=== PATIENT | male | born 1970 | race African-American/Black ===

== ENCOUNTER 2022-09-13 16:05 | Emergency (ER) | payer MEDICAID, OTHER, SELFPAY ==
--- NOTE | ~2022-09-13 | XR_ITS ---
EXAMINATION: XR CHEST CLINICAL INFORMATION: Chest trauma COMPARISON: Chest radiograph 01/24/2020 TECHNIQUE: Frontal view of the chest was obtained. FINDINGS: Heart size normal. Lungs are hypoinflated. Left basilar atelectasis is seen, similar to 2012. No pleural effusions or rib fractures. XR/XR chest 1V IMPRESSION: No acute intrathoracic disease.
--- NOTE | ~2022-09-13 | CT_ITS ---
EXAMINATION: CT CHEST, ABDOMEN AND PELVIS WITH CONTRAST CLINICAL INFORMATION: Question chest trauma and abdominal trauma. Acute mental status change and fall COMPARISON: None TECHNIQUE: Multidetector volumetric imaging was performed from the thoracic inlet through the pubic symphysis. Sagittal and coronal reformatted images were obtained on the technologist's workstation. Axial MIP volume rendering provided. Oral contrast: No. Intravenous contrast: 85 mL of Omnipaque 350. No contrast reaction reported. Sagittal and coronal reformatted images were obtained on the technologist's workstation. This CT examination was performed using dose optimization techniques as appropriate, variously including the following: *Automated exposure control *Adjustment of mA and/or kV according to patient size (this includes techniques or standardized protocols for targeted exams where dose is matched to indication/reason for exam; i.e. extremities or head) *Use of iterative reconstruction technique DLP: 1812 mGy-cm FINDINGS: CHEST: Lungs: Respiratory motion artifact. Minimal hazy atelectasis in the lower lobes and left upper lobe. No airspace consolidation. No appreciable pulmonary nodule or mass. Central airways are clear. Mediastinum: No cardiomegaly or pericardial effusion. No coronary artery vascular calcification. Normal caliber thoracic aorta. No dissection and/or pseudoaneurysm. Arch origins patent. Main pulmonary arteries enhance normally. No mediastinal hematoma or pneumomediastinum. No mediastinal or hilar lymphadenopathy. Multinodular appearance of the thyroid gland noted. Pericardium/Pleura: No pleural effusion or pneumothorax. Chest Wall/Axilla: Unremarkable. ABDOMEN/PELVIS: Liver, Gallbladder, Biliary Tree: The liver is mildly enlarged measuring 18.6 cm in craniocaudal length. Diffuse hepatic hypoattenuation/steatosis. No liver lesion or biliary ductal dilation. The gallbladder is unremarkable with no evidence of radiopaque gallstones, gallbladder wall thickening, or pericholecystic inflammatory changes. Pancreas: Unremarkable. Spleen: Unremarkable. Adrenal Glands: Unremarkable. Kidneys and Ureters: The kidneys are normal in size, shape, and attenuation. No hydronephrosis or hydroureter or calculi seen. No perinephric stranding. Bladder: Unremarkable. Gastrointestinal Tract: Large amount of formed stool in the rectum and distal sigmoid colon. No rectal wall thickening or surrounding inflammatory stranding. No dilated bowel loops. No bowel wall thickening. Appendix not visualized. No inflammatory change at the base of the cecum. No ascites or free air. Abdominal Wall: Tiny fat-containing umbilical hernia. Lymphovascular Structures: Lymph nodes: No lymphadenopathy. Vascular: Unremarkable. Pelvic Viscera: Unremarkable. OSSEOUS STRUCTURES: No acute fracture or suspicious osseous lesion. CT/CT abdomen pelvis w IV con IMPRESSION: 1. No acute traumatic injury identified in the chest, abdomen, or pelvis. No acute fracture. 2. Mild hepatomegaly and hepatic steatosis. 3. Large amount of formed stool in the rectum and distal sigmoid colon. Correlate clinically with signs or symptoms of constipation or fecal impaction. 4. Incidental probable multinodular thyroid goiter. Suggest follow-up as previously advised on earlier CT cervical spine.
--- NOTE | ~2022-09-13 | CT_ITS ---
EXAMINATION: NONCONTRAST HEAD CT NONCONTRAST CERVICAL SPINE CT INDICATION INFORMATION: Acute mental status change. Question neck trauma. COMPARISON: None TECHNIQUE: Separate noncontrast CT examinations of the head and cervical spine were performed. Coronal and sagittal images were created for each examination at the technologist workstation. This CT examination was performed using dose optimization techniques as appropriate, variously including the following: *Automated exposure control *Adjustment of mA and/or kV according to patient size (this includes techniques or standardized protocols for targeted exams where dose is matched to indication/reason for exam; i.e. extremities or head) *Use of iterative reconstruction technique DLP: 1331 mGy-cm FINDINGS: HEAD: No intra or extra-axial fluid collection, hemorrhage, or mass. No ventriculomegaly. No midline shift or herniation. Basal cisterns are patent. Baltazar-white matter differentiation is maintained. No territorial encephalomalacia. No significant volume loss. There is no abnormal attenuation within the brain parenchyma. No calvarial fracture or soft tissue abnormality. Mucous retention cyst within the right maxillary antrum. Small amount of mucus in a few posterior ethmoid air cells laterally. Mastoid air cells are normally aerated. CERVICAL SPINE: Alignment: Mild reversal the normal cervical lordosis. No subluxation. Vertebra: No acute fracture. No prevertebral soft tissue swelling. Degenerative disc disease: Mild multilevel spondylosis of the mid and lower cervical spine with small anterior endplate osteophytes. Intervertebral disc heights are fairly well-maintained. Other findings: Prominent size and multinodular appearance of the thyroid gland left gland appearing slightly larger than right. Visualized lung apices grossly clear. No cervical lymphadenopathy. CT/CT cervical spine wo IV con IMPRESSION: 1. No intracranial hemorrhage or calvarial fracture. 2. No traumatic subluxation or acute cervical spine fracture. 3. Probable multinodular thyroid goiter. Suggest nonemergent thyroid ultrasound for further evaluation and correlation with thyroid function tests.
[2022-09-13 16:25] VITALS: BP 132/86; BP 160/90; PULSE 109; PULSE 111; RESP 18; TEMP 36.3; O2SAT 93; O2SAT 96; BMI 35.2
--- NOTE | 2022-09-13 16:59 | ECG_ITS ---
Test Reason : ams Blood Pressure : / mmHG Vent. Rate : 091 BPM Atrial Rate : 091 BPM P-R Int : 182 ms QRS Dur : 092 ms QT Int : 334 ms P-R-T Axes : 044 034 -10 degrees QTc Int : 410 ms Normal sinus rhythm Cannot rule out Inferior infarct (cited on or before 26-DEC-2011) Abnormal ECG When compared with ECG of 26-DEC-2011 10:14, No significant changes seen Referred By: Bandar Zepeda Electronically Signed By:DAWN MARTE
--- NOTE | 2022-09-13 17:00 | ED_ITS ---
HPI - General Adult General Chief complaint: General Medical Stated complaint: AMS, FOUND WANDERING PER EMS Time Seen by Provider: 09/13/22 16:59 Source: EMS Mode of arrival: EMS Limitations: altered mental status History of Present Illness HPI narrative: This is a 52-year-old male presenting to the emergency department via ambulance for altered mental status patient was found urinating on the sidewalk per report of EMS, according to nursing note EMS reported that patient appeared altered and not responding to questions, he was initially communicating by writing on paper and there was questions that he may have some sort of developmental delay. Upon my history taking patient is not answering questions at all. Unable to obtain an accurate history or review of systems. I do not have previous records on t his patient and I do not know patient's baseline. Related Data Allergies Allergy/AdvReac Type Severity Reaction Status Date / Time Unable to Assess Allergy Unverified 09/13/22 16:59 Review of Systems Review of Systems: Yes Unobtainable due to mental status PMFSH Past Medical History Attestation statement: The following information was validated with the patient. Source: nursing notes reviewed Social History Social History Advance Directives: No Advance Directives Information Provided: No Physical Exam ED Vital Signs: Vital Signs - 24 hr 09/13/22 16:25 09/13/22 20:03 Temperature 97.3 F 99.0 F Pulse Rate 111 H 91 Respiratory Rate 18 18 Blood Pressure 160/90 H 157/94 H Pulse Oximetry 93 95 Oxygen Delivery Method Room Air Room Air BMI result Body Mass Index 35.2 Patient is noted to be tachycardic and saturating 93% on room air Appearance: Patient awake, alert. No acute distress.? Head: Normocephalic, atraumatic, no step-offs or deformities Eyes: Pupils equal, round and reactive to light.? Extraocular movements intact. Patient tracking objects appropriately. ENT: Pharynx normal.? Neck: Normal inspection.? Neck supple.? CVS: Normal heart rate and rhythm.? Pulses normal.? Respiratory: No respiratory distress.? Breath sounds normal.? Abdomen: Soft and nontender.? Skin: Skin warm and dry.? Normal skin color.? Normal skin turgor.? Extremities: No lower extremity edema.? No calf ttp. 5/5 strength to bilateral upper and lower extremities Back: No midline tenderness, no C-spine tenderness, full range of motion, no CVA tenderness bilaterally Neuro: Patient awake, alert. Not speaking, however moving all extremities.? No motor deficit.? No sensory deficit. Difficult to obtain a full neurological exam is patient is not contributing. Unable to obtain accurate NIH stroke scale. Patient not following commands. Course Reevaluation(s) Reevaluation #1: Per patients mom patient takes Haldol, Latuda, Benadryl. Psychiatrist Khadar Hartman. Patients mom tells me that patient has a history of schizophrenia unsure if he has been taking his medications as prescribed. He has had multiple inpatient psychiatric admissions for this. Patient is able to talk however patient continues to be nonverbal. At this time consult for care team will be placed for him to be evaluated after medically cleared. Patient will be placed on a Section 12 I am concerned that patient is catatonic. After my initial evaluation, nursing also reported to me that patient is not speaking and not moving, concerns for catatonia, likely non med compliance. Time: 19:29 Reevaluation #2: CBC with slight leukocytosis however I do not suspect infection on this patient. Chemistry with no acute electrolyte abnormalities requiring intervention. His AST is 51 and ALT 140 to elevated in a 2-1 ratio. UA clean. Urine toxicology negative. Ethanol negative. Chest x-ray with no acute intrathoracic disease. Pending CT scans. Time: 19:49 Reevaluation #3: The care team had a more in-depth conversation with mother, mother reports that he talk only to her sometimes and very minimally, he does not talk to other people. She tells care team that this is his baseline and that sometimes he goes out and does strange things like peas on the street, she says that she has been caring for him for years, care team past mother what she would prefer for disposition, mother states that she feels comfortable taking him home because this does not deviate far from his baseline. Mom states he did not have any history of TBIs or developmental delays that are diagnosed. Care team feels comfortable with patient being discharged home they did ask him a series of questions, patient did not respond verbally however he was able to [place] answers on a piece of paper that made sense. Patient not suicidal or homicidal. Patient not meeting inpatient psychiatric criteria CT of the chest, abdomen and pelvis with no acute traumatic injury or acute fractures. There is mild hepatomegaly aunts hepatic steatosis noted. Large amount of stool in the rectum and distal sigmoid. Multi nodular thyroid goiter noted on CT. CT of the head with no intracranial hemorrhage or clavicular fracture. No traumatic subluxation or acute cervical spine fracture. Chest x- ray unremarkable. Plan is to discharge patient home to mother, care team will set up transportation for patient to get home, I did communicate all of this with patient, he nods and verbalizes understanding. Educated patient on diagnosis and treatment plan, answered all question, patient verbalizes understanding. At this time patient will be discharged home, advised to return with new or worsening symptoms. Educated on worrisome signs and symptoms and when to return. At this time I feel comfortable discharge home. Time of discharge patient answering questions appropriately via writing, hemodynamically stable, appears comfortable. Time: 21:13 Medications Administered Discontinued Medications Generic Name Dose Route Start Last Admin Trade Name Freq PRN Reason Stop Dose Admin Iohexol 100 ml 09/13/22 19:01 09/13/22 19:01 Iohexol 350 Mg/Ml 100 Ml Infus..Btl IV 09/13/22 19:02 85 ml ONCE ONE Administration Medical Decision Making Medical Decision Making [facility] Narrative: [id number] 52-year-old male presents for altered mental status found urinating on the sidewalk brought in by EMS, patient not speaking unclear if this is his baseline or not. Unknown past medical history. Physical examination patient awake, alert, appears comfortable, in no acute distress. However difficult to obtain neurological exam due to patient not participating in exam. Patient moving all extremities without difficulty, no evidence signs of trauma. Extraocular movements intact and pain-free. Pupils equal round and reactive to light. Regular rate and rhythm. Lungs clear. Abdomen soft nontender nondistended. Concerns for possible traumatic injury, polysubstance abuse, developmental delay, UTI. Will rule out intracranial hemorrhage in stroke. Will also rule out alcohol intoxication and electrolyte abnormalities Plan at this time labs, imaging, urine. Differential Diagnosis Differential Diagnoses: The differential diagnosis associated with the presentation includes Concerns for possible traumatic injury, polysubstance abuse, developmental delay, UTI. Will rule out intracranial hemorrhage in stroke. Will also rule out alcohol intoxication and electrolyte abnormalities Admission/Observation Consideration of admission/observation: Escalation of care including admission/observation considered Lab Data [facility] Lab Attestation statement: I reviewed the patient's lab results. 09/13/22 17:54 09/13/22 17:54 Labs: Lab Results 09/13/22 09/13/22 09/13/22 Range/Units 17:54 17:54 17:54 WBC 12.5 H (4.8-10.8) X10*3/uL RBC 5.92 H (4.60-5.80) X10*6/uL Hgb 17.6 (14.0-18.0) g/dl Hct 50.7 (42.0-52.0) % MCV 85.6 (80.0-98.0) fL MCH 29.7 (27.0-33.0) pg MCHC 34.7 (31.0-36.0) g/dl RDW 12.8 (11.0-16.0) % Plt Count 213 (160-400) X10*3/uL MPV 10.9 (9.4-12.4) fL Immature Gran % (Auto) 0.3 (0.0-0.4) % Neut % (Auto) 69.8 (45-73) % Lymph % (Auto) 20.8 (20-40) % Morton % (Auto) 7.7 (2-11) % Eos % (Auto) 1.0 (0-4) % Baso % (Auto) 0.4 (0-2) % Lymph # (Auto) 2.6 (1.2-4.9) X10*3/uL [place] # (Auto) 1.0 (0.1-1.2) X10*3/uL Eos # (Auto) 0.1 (0.0-0.4) X10*3/uL Baso # (Auto) 0.1 (0.0-0.2) X10*3/uL Abs Immat Gran (auto) 0.04 H (0.00-0.03) X10*3/uL Absolute Neuts (auto) 8.7 H (2.0-8.3) x10*3/uL Absolute Nucleated RBC 0.000 (0.0-0.012) X10*3/uL Nucleated RBC % (auto) 0.0 (0.0-0.2) /100WBC Sodium 142 (135-145) mmol/L Potassium 3.9 (3.3-5.1) mmol/L Chloride 107 (96-108) mmol/L Carbon Dioxide 24 (22-29) mmol/L Anion Gap 15 (12-20) BUN 8 L (9-16) mg/dL Creatinine 0.88 (0.5-1.4) mg/dL Estim Creat Clear Calc 114.0 Estimated GFR > 60 Random Glucose 127 H (60-115) mg/dL Calcium 9.2 (8.4-10.2) mg/dL Magnesium 2.0 (1.6-2.6) mg/dL Total Bilirubin 0.4 (0.0-1.0) mg/dL AST 51 H (5-37) U/L ALT 142 H (0-40) U/L Alkaline Phosphatase 93 (39-117) U/L Troponin I High Sens 6.0 (<3.5-35.0) ng/L Total Protein 7.1 (6.5-8.0) g/dL Albumin 4.3 (3.5-5.0) g/dL Urine Color Urine Appearance Urine pH (5.0-9.0) Ur Specific [place] (1.005-1.025) Urine Protein (Neg-Trace) mg/dL Urine Glucose (UA) (Negative) mg/dL Urine Ketones (Negative) mg/dL Urine Blood (Negative) Urine Nitrite (Negative) Ur Leukocyte Esterase (Negative) Urine Opiates Screen (Not Detect) Urine Fentanyl Screen (Not Detect) Ur Barbiturates Screen (Not Detect) Ur Phencyclidine Scrn (Not Detect) Ur Amphetamines Screen (Not Detect) U Benzodiazepines Scrn (Not Detect) Urine Cocaine Screen (Not Detect) U Marijuana (THC) Screen (Not Detect) Ethyl Alcohol mg/dL COVID-19 (LUPE) (Negative) COVID-19 Clin Com 09/13/22 09/13/22 09/13/22 Range/Units 17:54 18:22 18:22 WBC (4.8-10.8) X10*3/uL RBC (4.60-5.80) X10*6/uL Hgb (14.0-18.0) g/dl Hct (42.0-52.0) % MCV (80.0-98.0) fL MCH (27.0-33.0) pg MCHC (31.0-36.0) g/dl RDW (11.0-16.0) % Plt Count (160-400) X10*3/uL MPV (9.4-12.4) fL Immature Gran % (Auto) (0.0-0.4) % Neut % (Auto) (45-73) % Lymph % (Auto) (20-40) % Morton % (Auto) (2-11) % Eos % (Auto) (0-4) % Baso % (Auto) (0-2) % Lymph # (Auto) (1.2-4.9) X10*3/uL [place] # (Auto) (0.1-1.2) X10*3/uL Eos # (Auto) (0.0-0.4) X10*3/uL Baso # (Auto) (0.0-0.2) X10*3/uL Abs Immat Gran (auto) (0.00-0.03) X10*3/uL Absolute Neuts (auto) (2.0-8.3) x10*3/uL Absolute Nucleated RBC (0.0-0.012) X10*3/uL Nucleated RBC % (auto) (0.0-0.2) /100WBC Sodium (135-145) mmol/L Potassium (3.3-5.1) mmol/L Chloride (96-108) mmol/L Carbon Dioxide (22-29) mmol/L Anion Gap (12-20) BUN (9-16) mg/dL Creatinine (0.5-1.4) mg/dL Estim Creat Clear Calc Estimated GFR Random Glucose (60-115) mg/dL Calcium (8.4-10.2) mg/dL Magnesium (1.6-2.6) mg/dL Total Bilirubin (0.0-1.0) mg/dL AST (5-37) U/L ALT (0-40) U/L Alkaline Phosphatase (39-117) U/L Troponin I High Sens (<3.5-35.0) ng/L Total Protein (6.5-8.0) g/dL Albumin (3.5-5.0) g/dL Urine Color Yellow Urine Appearance Clear Urine pH 8.5 (5.0-9.0) Ur Specific [place] 1.020 (1.005-1.025) Urine Protein Trace (Neg-Trace) mg/dL Urine Glucose (UA) Negative (Negative) mg/dL Urine Ketones Negative (Negative) mg/dL Urine Blood Negative (Negative) Urine Nitrite Negative (Negative) Ur Leukocyte Esterase Negative (Negative) Urine Opiates Screen (Not Detect) Urine Fentanyl Screen (Not Detect) Ur Barbiturates Screen (Not Detect) Ur Phencyclidine Scrn (Not Detect) Ur Amphetamines Screen (Not Detect) U Benzodiazepines Scrn (Not Detect) Urine Cocaine Screen (Not Detect) U Marijuana (THC) Screen (Not Detect) Ethyl Alcohol < 10 mg/dL COVID-19 (LUPE) Negative (Negative) COVID-19 Clin Com See Note 09/13/22 Range/Units 18:22 WBC (4.8-10.8) X10*3/uL RBC (4.60-5.80) X10*6/uL Hgb (14.0-18.0) g/dl Hct (42.0-52.0) % MCV (80.0-98.0) fL MCH (27.0-33.0) pg MCHC (31.0-36.0) g/dl RDW (11.0-16.0) % Plt Count (160-400) X10*3/uL MPV (9.4-12.4) fL Immature Gran % (Auto) (0.0-0.4) % Neut % (Auto) (45-73) % Lymph % (Auto) (20-40) % [place] % (Auto) (2-11) % Eos % (Auto) (0-4) % Baso % (Auto) (0-2) % Lymph # (Auto) (1.2-4.9) X10*3/uL [place] # (Auto) (0.1-1.2) X10*3/uL Eos # (Auto) (0.0-0.4) X10*3/uL Baso # (Auto) (0.0-0.2) X10*3/uL Abs Immat Gran (auto) (0.00-0.03) X10*3/uL Absolute Neuts (auto) (2.0-8.3) x10*3/uL Absolute Nucleated RBC (0.0-0.012) X10*3/uL Nucleated RBC % (auto) (0.0-0.2) /100WBC Sodium (135-145) mmol/L Potassium (3.3-5.1) mmol/L Chloride (96-108) mmol/L Carbon Dioxide (22-29) mmol/L Anion Gap (12-20) BUN (9-16) mg/dL Creatinine (0.5-1.4) mg/dL Estim Creat Clear Calc Estimated GFR Random Glucose (60-115) mg/dL Calcium (8.4-10.2) mg/dL Magnesium (1.6-2.6) mg/dL Total Bilirubin (0.0-1.0) mg/dL AST (5-37) U/L ALT (0-40) U/L Alkaline Phosphatase (39-117) U/L Troponin I High Sens (<3.5-35.0) ng/L Total Protein (6.5-8.0) g/dL Albumin (3.5-5.0) g/dL Urine Color Urine Appearance Urine pH (5.0-9.0) Ur Specific [place] (1.005-1.025) Urine Protein (Neg-Trace) mg/dL Urine Glucose (UA) (Negative) mg/dL Urine Ketones (Negative) mg/dL Urine Blood (Negative) Urine Nitrite (Negative) Ur Leukocyte Esterase (Negative) Urine Opiates Screen Not Detected (Not Detect) Urine Fentanyl Screen Not Detected (Not Detect) Ur Barbiturates Screen Not Detected (Not Detect) Ur Phencyclidine Scrn Not Detected (Not Detect) Ur Amphetamines Screen Not Detected (Not Detect) U Benzodiazepines Scrn Not Detected (Not Detect) Urine Cocaine Screen Not Detected (Not Detect) U Marijuana (THC) Screen Not Detected (Not Detect) Ethyl Alcohol mg/dL COVID-19 (LUPE) (Negative) COVID-19 Clin Com Independent Interpretation I performed an independent interpretation of an: Plain X-Ray and CT Scan Independent Historian Clinical information obtained from an independent historian. History obtained from or confirmed by: EMS Core Measures AMI core measures followed: Yes Measure exclusions: not indicated Critical Care Time Critical Care Time Critical Care Time: No Discharge Plan Discharge Clinical Impression: Schizophrenia, Bizarre behavior Patient Disposition: Home, Self-Care Additional Instructions: Take your medications as prescribed. If you were prescribed antibiotics today, it is important that you take your medication to their entirety, do not skip any doses, do not finish them early. Follow-up with your primary care provider this week. Return to the emergency department with new or worsening symptoms. Such as fevers, chills, chest pain, shortness of breath, nausea, vomiting, dizziness, headache, vision changes, lethargy, suicidal ideation or homicidal ideations In case of emergency call 911 CT/CT cervical spine and head wo IV con IMPRESSION: 1. No intracranial hemorrhage or calvarial fracture. 2. No traumatic subluxation or acute cervical spine fracture. 3. Probable multinodular thyroid goiter. Suggest nonemergent thyroid ultrasound for further evaluation and correlation with thyroid function tests. CT of chest, abdomen and pelvis 1.? No acute traumatic injury identified in the chest, abdomen, or pelvis. No acute fracture. 2.? Mild hepatomegaly and hepatic steatosis. 3.? Large amount of formed stool in the rectum and distal sigmoid colon. Correlate clinically with signs or symptoms of constipation or fecal impaction. 4.? Incidental probable multinodular thyroid goiter. Suggest follow-up as previously advised on earlier CT cervical spine. ? Referrals: Physician,Laron J [Primary Care Provider] - 2 days
[2022-09-13 18:00] LABS: MANUAL DIFF FLAG NO
[2022-09-13 18:02] LABS: Basophils Absolute Auto 0.1 X10*3/uL (0.0-0.2); Basophils Percent Auto 0.4 % (0-2); Eosinophils Absolute Auto 0.1 X10*3/uL (0.0-0.4); Hematocrit 50.7 % (42.0-52.0); Hemoglobin 17.6 g/dl (14.0-18.0); Imm Gran Abs Auto 0.04 X10*3/uL (0.00-0.03); Imm Gran Pct Auto 0.3 % (0.0-0.4); Lymphocytes Absolute Auto 2.6 X10*3/uL (1.2-4.9); Lymphocytes Percent Auto 20.8 % (20-40); Mean Corpuscular HGB Conc 34.7 g/dl (31.0-36.0); Mean Corpuscular Hemoglobin 29.7 pg (27.0-33.0); Mean Corpuscular Volume 85.6 fL (80.0-98.0); Mean Platelet Volume 10.9 fL (9.4-12.4); Monocytes Percent Auto 7.7 % (2-11); Neutrophils Absolute Auto 8.7 x10*3/uL (2.0-8.3); Neutrophils Percent Auto 69.8 % (45-73); Platelet Count 213 X10*3/uL (160-400); Red Blood Count 5.92 X10*6/uL (4.60-5.80); Red Cell Distribution Width 12.8 % (11.0-16.0); White Blood Count 12.5 X10*3/uL (4.8-10.8)
[2022-09-13 18:25] LABS: Alanine Aminotransferase 142 U/L (0-40); Albumin Level 4.3 g/dL (3.5-5.0); Alkaline Phosphatase 93 U/L (39-117); Anion Gap 15 (12-20); Aspartate Amino Transferase 51 U/L (5-37); Bilirubin Total 0.4 mg/dL (0.0-1.0); Blood Urea Nitrogen 8 mg/dL (9-16); Calcium 9.2 mg/dL (8.4-10.2); Carbon Dioxide 24 mmol/L (22-29); Chloride 107 mmol/L (96-108); Estimated Glomerular Filt Rate > 60; Ethanol < 10 mg/dL; Glucose Random 127 mg/dL (60-115); Potassium 3.9 mmol/L (3.3-5.1); Sodium 142 mmol/L (135-145); Total Protein 7.1 g/dL (6.5-8.0)
[2022-09-13 18:29] LABS: Appearance Urine Clear; Color Urine Yellow; Glucose Urine UA Negative (Negative); Leukocyte Esterase Urine Negative (Negative); Nitrite Urine Negative (Negative); PH 8.5 (5.0-9.0); Urine Blood Negative (Negative); Urine Ketones Negative (Negative); Urine Protein Trace mg/dL (Neg-Trace)
[2022-09-13 18:38] LABS: Amphetamine Screen Urine Not Detected (Not Detect); Barbiturates, Urine Not Detected (Not Detect); Benzodiazepines Screen Urine Not Detected (Not Detect); Cannabinoid Screen Urine Not Detected (Not Detect); Cocaine Screen Urine Not Detected (Not Detect); Fentanyl, urine Not Detected (Not Detect); Opiate Screen Urine Not Detected (Not Detect); Phencyclidine Screen Urine Not Detected (Not Detect)
[2022-09-13 18:49] LABS: COVID-19 Test Negative (Negative); IDNOW Serial# 55D5AD1C
[2022-09-13] MEDS: iohexoL 350 MG/ML 100 ML INFUS..BTL IV (19:01)
[2022-09-13 20:03] VITALS: BP 157/94; PULSE 91; RESP 18; TEMP 37.2; O2SAT 95
--- NOTE | 2022-09-13 21:34 | PC.NURSE ---
Pt remains awake and alert, with baseline presentation from RN's assumption of care. Pt has been noted to answer/say short, one word answers that were difficult to understand initially however the pt said thank you and urine to this RN. Pt able to follow commands but does not respond verbally to all questions/complaints. Pt able to answer yes/no questions by pointing at appropriate answers and confirms he feels safe at home. The pt's mother is aware of pending dc. Staff is awaiting scheduling of a lyft at this time by care team. RN to continue to monitor.
--- NOTE | 2022-09-13 22:19 | PC.NURSE ---
2nd attempt to contact patient's mother to review discharge instructions unsuccessful. Call continues to ring without answer and there is still no option to a leave a VM. RN stays on the line with phone ringing for a period of time until the there's a busy signal heard and then the line disconnects. RN will try again prior to shift end at 2300.
--- NOTE | 2022-09-13 23:18 | PC.NURSE ---
RN's shift is complete. RN making 3rd unsuccessful attempt to contact pt's mother at number listed on file ([phone]). RN remains unable to get an answer and/or leave a VM. foreign agent aware.
== END 2022-09-13 22:05 | disposition home or self-care (01) ==
PROVIDERS: Physician Assistant; Emergency Provider Emergency Medicine
DX: F25.9 Schizoaffective disorder, unspecified (principal); R41.82 Altered mental status, unspecified; R07.89 Other chest pain; R51.9 Headache, unspecified; M54.6 Pain in thoracic spine; Z20.822 Contact with and (suspected) exposure to COVID-19; Z20.828 Contact with and (suspected) exposure to other viral communicable diseases; Z79.899 Other long term (current) drug therapy
CPT/HCPCS: 70450; 71045; 71260; 72125; 74177; 80053; 80307; 81003; 82077; 83735; 84484; 85025; 87635; 93005; 99284; Q9967; S9485

== ENCOUNTER 2023-09-28 09:32 | Outpatient (REF) | payer MEDICAID, SELFPAY ==
[2023-09-28 14:56] LABS: Estimated Average Glucose 103 mg/dL; Hemoglobin A1c % 5.2 % (<6.0)
[2023-09-28 14:59] LABS: Alanine Aminotransferase 58 U/L (0-40); Albumin Level 4.3 g/dL (3.5-5.0); Alkaline Phosphatase 71 U/L (39-117); Anion Gap 13 (12-20); Aspartate Amino Transferase 24 U/L (5-37); Bilirubin Direct 0.2 mg/dL (0.0-0.5); Bilirubin Total 0.7 mg/dL (0.0-1.0); Blood Urea Nitrogen 16 mg/dL (9-16); Calcium 9.5 mg/dL (8.4-10.2); Carbon Dioxide 29 mmol/L (22-29); Chloride 105 mmol/L (96-108); Cholesterol 177 mg/dL (<200); Estimated Glomerular Filt Rate > 60; Glucose Random 95 mg/dL (60-115); HDL Cholesterol 41 mg/dL (>40); LDL Cholesterol Calculated 119 mg/dL (<100); Potassium 3.6 mmol/L (3.3-5.1); Sodium 143 mmol/L (135-145); Total Protein 7.2 g/dL (6.5-8.0); Triglycerides 87 mg/dL (<150)
[2023-09-28 15:16] LABS: Thyroid Stimulating Hormone 0.27 uIU/mL (0.32-4.0)
[2023-09-29 08:31] LABS: ~HepC Num1 0.06 S/CO (0.00-0.79); ~Hepatitis C Antibody Nonreactive (Nonreactive)
[2023-10-01 17:48] LABS: HIV RNA PCR Qn Copies Not Detected Copies/mL; HIV RNA PCR Qn Log Copies Not Detected Log cps/mL
== END 2023-09-28 09:33 | disposition home or self-care (01) ==
LOC: HO.CHCLDS 09:32
PROVIDERS: Visit Provider Student in an Organized Health Care Education/Training Program
DX: Z00.00 Encounter for general adult medical examination without abnormal findings (principal); Z11.4 Encounter for screening for human immunodeficiency virus [HIV]; E11.9 Type 2 diabetes mellitus without complications; I10 Essential (primary) hypertension; E03.9 Hypothyroidism, unspecified; E78.00 Pure hypercholesterolemia, unspecified
CPT/HCPCS: 36415; 80048; 80061; 80076; 83036; 84443; 86803; 87536; 87900

== ENCOUNTER 2024-06-04 09:38 | Outpatient (REF) | payer MEDICAID, SELFPAY ==
[2024-06-04 15:18] LABS: Alanine Aminotransferase 72 U/L (0-40); Albumin Level 4.3 g/dL (3.5-5.0); Alkaline Phosphatase 76 U/L (39-117); Anion Gap 14 (12-20); Aspartate Amino Transferase 28 U/L (5-37); Bilirubin Direct 0.2 mg/dL (0.0-0.5); Bilirubin Total 0.5 mg/dL (0.0-1.0); Blood Urea Nitrogen 8 mg/dL (9-16); Calcium 9.8 mg/dL (8.4-10.2); Carbon Dioxide 25 mmol/L (22-29); Chloride 107 mmol/L (96-108); Cholesterol 162 mg/dL (<200); Estimated Glomerular Filt Rate > 60; Glucose Random 100 mg/dL (60-115); HDL Cholesterol 41 mg/dL (>40); LDL Cholesterol Calculated 108 mg/dL (<100); Potassium 3.9 mmol/L (3.3-5.1); Sodium 142 mmol/L (135-145); Total Protein 7.1 g/dL (6.5-8.0); Triglycerides 69 mg/dL (<150)
[2024-06-04 15:21] LABS: TSH reflex Free T4 0.37 uIU/mL (0.32-4.0)
== END 2024-06-04 09:39 | disposition home or self-care (01) ==
LOC: HO.CHCLDS 09:38
PROVIDERS: Visit Provider Student in an Organized Health Care Education/Training Program
DX: E11.9 Type 2 diabetes mellitus without complications (principal); E78.00 Pure hypercholesterolemia, unspecified; E04.9 Nontoxic goiter, unspecified
CPT/HCPCS: 36415; 80048; 80061; 80076; 84443

== ENCOUNTER 2024-12-04 09:41 | Outpatient (REF) | payer MEDICAID, SELFPAY ==
--- OUTSIDE RECORDS SUMMARY | 2024-12-04 10:50 | XMS_ITS | Encounter Summary ---
Author Organization [employer] Address [address] [facility] 7t [place] [address] Care Team Providers Care Transitional Studies Instructor Name Role Phone Kait Godinez MD Primary Care Provider [phone] Encounter Details Date Type Department Care Team (Latest Contact Info) Description 12/04/2024 Travel Social History Tobacco Use Types Packs/Day Years Used Date Smoking Tobacco: Never Smokeless Tobacco: Never Alcohol Use Standard Drinks/Week Comments Never 0 (1 standard drink = 0.6 oz pur e alcohol) Housing Stability Answer Date Recorded What is your housing situation today? I have ever shaffer 06/26/[address] you li ve. Do you have problems with any of the following? None of the above 06/26/2023 Food Insecurity Answer Date Recorded Within the past 12 months, y ou worried that your food would run out before you got money to buy more: Sometimes True 2023 Within the past 12 months,th e food you bought just didn't last and you didn't have enough money to get more: Sometimes True 09/28/2023 Transportation Answer Date Recorded In the past 12 months, has l ack of transportation kept you from medical appts, meetings, work or from getting things needed for daily living? Yes, it has kept me from medical appointments or getting medications. 09/28/2023 Utilities Answer Date Recorded In the past 12 months, has t he electric, gas, oil or water company threatened to shut off services in your home? No 06/26/2023 Sex and Gender Information Value Date Recorded Sex Assigned at Male 06/20/2022 10:18 AM EDT Legal Sex Male 10:18 AM EDT Gender Identity Male 09/19/2022 9:48 AM EST Sexual Orientation Choose not to disclose 2022 9:48 AM EST documented as of this encounter Plan of Treatment Not on file documented as of this encounter Visit Diagnoses Not on filedocumented in this encounter Care Teams Transitional Studies Instructor Relationship Specialty Start Date End Date Kati Godinez MD [address] [place] [phone] PCP - General Family Medicine 08/02/12 documented as of this encounter
--- OUTSIDE RECORDS SUMMARY | 2024-12-04 10:50 | XMS_ITS | Encounter Summary ---
Author Organization [employer] Address [address] [facility] 7t [place] [address] Care Team Providers Care Visitor Services Technician Name Role Phone Kati Godinez MD Primary Care Provider [phone] Reason for Referral * Consultation (Routine) - Pending Review Specialty Diagnoses / Procedures Referred By Teri steele Referred To Contact Gastroenterology Diagnoses Encounter for screening for malignant neoplasm of colon Kati Godinez MD [address] [place] [address] Phone: tel: fax: Referral ID Status Reason Start Date Expiration Date Visits Requested Visits Authorized [id number] Pending Review Specialty Services Required 12/04/2024 12/04/2025 1 1 Reason for Visit * Reason Comments Follow-up dm Encounter Details Date Type Department Care Team ([facility] Contact Info) Description 12/04/2024 10:00 AM EDT Office Visit [facility]S [address] [place] [address] Kati Godinez MD [address] [place] [address] Type 2 diabetes mellitus without complication, without long-term current use of insulin (CMS/HCC) (Primary Dx); Hypercholesteremia; Hypertension, unspecified type; Hypothyroidism, unspecified type; Encounter for screening for malignant neoplasm of colon Social History Tobacco Use Types Packs/Day Years [...] the past 12 months, has t he [employer], gas, oil or water company threatened to shut off services in your home? No 06/26/2023 Sex and Gender Information Value Date Recorded Sex Assigned at Male 06/20/2022 10:18 AM EDT Legal Sex Male 10:18 AM EDT Gender Identity Male 09/19/2022 9:48 AM EST Sexual Orientation Choose not to disclose 2022 9:48 AM EST documented as of this encounter Last Filed Vital Signs Vital Sign Reading Time Taken Comments Blood Pressure 150/94 12/04/2024 9:14 AM EDT Pulse 70 12/04/2024 9:14 AM EDT Temperature 36.6 ??C (97.8 ??F) 12/04/2024 9:14 AM ED T Respiratory Rate 18 12/04/2024 9:14 AM EDT Oxygen Saturation 98% 12/04/2024 9:14 AM EDT Inhaled Oxygen Concentration - - Weight 101 kg (223 lb) 12/04/2024 9:14 AM EDT Height 173.4 cm (5' 8.25 ) 12/04/2024 9:14 AM ED T Body Mass Index 33.66 12/04/2024 9:14 AM EDT documented in this encounter Progress Notes * Kati Godinez MD - 12/04/2024 10:00 AM EDT Subjective Patient ID: Maurilio Corral is a 54 y.o. male who presents for Follow-up (dm). Diabetes He presents for his follow-up diabetic visit. He has type 2 diabetes mellitus. His disease course has been stable. There are no hypoglycemic associated symptoms. There are no diabetic associated symptoms. There are no hypoglycemic complications. Symptoms are stable. There are no diabetic complications. Risk factors for coronary artery disease include family history, male sex, sedentary lifestyle and dyslipidemia. Review of Systems Constitutional: Negative. Respiratory: Negative. Cardiovascular: Negative. Gastrointestinal: Negative. Genitourinary: Negative. Objective Physical Exam Constitutional: Appearance: Normal appearance. He is obese. Cardiovascular: Rate and Rhythm: Normal rate and regular rhythm. Pulmonary: Effort: Pulmonary effort is normal. Breath sounds: Normal breath sounds. Neurological: General: No focal deficit present. Mental Status: He is alert. Assessment/Plan Diagnoses and all orders for this visit: Type 2 diabetes mellitus without complication, without long-term current use of insulin ([facility]) Comments: All suppplies sent to pharamcy again Advised to check sugars Advised Low sugar and Low carb diet. Counseled regarding self-monitoring of blood glucose. Counseled re: potential co-morbidities including cardiovascular disease. Counseled re: potential co-morbidities include neuropathy and retinopathy. Counseled re: potential co-morbidities include nephropathy. Orders: - POCT A1C - POCT glucose manually resulted - Basic Metabolic Panel; Future - Lipid Panel, Standard; Future - Hepatic Function Panel; Future - Albumin, Random Urine W/Creatinine; Future Hypercholesteremia - Basic Metabolic Panel; Future - Lipid Panel, Standard; Future - Hepatic Function Panel; Future Hypertension, unspecified type Comments: Lisinopril 5mg daily Maintain a low-sodium diet (less than 2 grams per day). Maintain a regular cardiovascular exercise program. Advised to maintain a low-fat, low-cholesterol diet. Counseled regarding importance of weight loss. Counseled re: potential co-morbidities including cardiovascular disease. Orders: - Basic Metabolic Panel; Future - Lipid Panel, Standard; Future - Hepatic Function Panel; Future Hypothyroidism, unspecified type - TSH with Reflex to Free T4; Future Encounter for screening for malignant neoplasm of colon - Referral to Gastroenterology; Future Other orders - Blood Glucose Monitoring Suppl (SureFire 2) w/Device kit; Use to test blood sugar 2 times daily - levothyroxine (Synthroid) 25 MCG tablet; Take 1 tablet (25 mcg) by mouth before breakfast. - lisinopril 5 MG tablet; Take 1 tablet (5 mg) by mouth Once per day. documented in this encounter Plan of Treatment Scheduled Orders Name Type Priority Associated Diagnoses Orde r Schedule Basic Metabolic Panel Lab Routine Type 2 diabetes mellitus without complication, without long-term current use of insulin (CMS/HCC) Hypercholesteremia Hypertension, unspecified type Expected: 12/04/2024 (Approximate), Expires: 12/04/2025 Lipid Panel, Standard Lab Routine Type 2 diabetes mellitus without complication, without long-term current use of insulin (CMS/HCC) Hypercholesteremia Hypertension, unspecified type Expected: 12/04/2024 (Approximate), Expires: 12/04/2025 Hepatic Function Panel Lab Routine Type 2 diabetes mellitus without complication, without long-term current use of insulin (CMS/HCC) Hypercholesteremia Hypertension, unspecified type Expected: 12/04/2024 (Approximate), Expires: 12/04/2025 TSH with Reflex to Free T4 Lab Routine Hypothyroidism, unspecified type Expected: 12/04/2024 (Approximate), Expires: 12/04/2025 Albumin, Random Urine W/Creatinine Lab Routine Type 2 diabetes mellitus without complication, without long-term current use of insulin (CMS/HCC) Expected: 12/04/2024 (Approximate), Expires: 12/04/2025 Scheduled Referrals Name Type Priority Associated Diagnoses Order Schedule Referral to Gastroenterology Outpatient Referral Routine Encounter for screening for malignant neoplasm of colon Expected: 12/04/2024 (Approximate), Expires: 12/04/2025 documented as of this encounter Procedures Procedure Name Priority Date/Time Associated Diagnosis Comments POCT GLYCATED HEMOGLOBIN, TOTAL Routine 12/04/2024 9:15 AM EDT Type 2 diabetes mellitus without complication, without long-term current use of insulin (CMS/HCC) POCT GLUCOSE Routine 12/04/2024 9:15 AM EDT Type 2 diabetes mellitus without complication, without long-term current use of insulin (CMS/HCC) documented in this encounter Results * POCT glucose manually resulted (12/04/2024 9:15 AM EDT) Glucose Blood, POC 105 60 - 200 mg/dL QC Media Lot # Comment:[id number] Lot# Expiration Date Comment:02/20/2025 Blood Capillary blood specimen / Unknown 12/04/2024 9:15 AM EDT Kati Godinez MD POINT OF CARE TEST ENTER/EDIT OR DERABLES Final Result * POCT A1C (12/04/2024 9:15 AM EDT) Hemoglobin A1C 5.3 4.0 - 6.0 % QC Media Lot # Comment:[id number] Lot# Expiration Date Comment:07/09/2026 Blood 12/04/2024 9:15 AM EDT Kati Godinez MD POINT OF CARE TEST ENTER/EDIT OR DERABLES Final Result documented in this encounter Visit Diagnoses Diagnosis Type 2 diabetes mellitus without complication, without long-term current use of insulin ([facility])- Primary Hypercholesteremia Pure hypercholesterolemia Hypertension, unspecified type Hypothyroidism, unspecified type Encounter for screening for malignant neoplasm of colon documented in this encounter Care Teams Visitor Services Technician Relationship Specialty Start Date End Date Kati Godinez MD [address] [place] [phone] PCP - General Family Medicine 08/02/12 documented as of this encounter
--- OUTSIDE RECORDS SUMMARY | 2024-12-04 10:50 | XMS_ITS | Encounter Summary ---
Author Organization [employer] Address [address] [facility] 7t [place] [address] Care Team Providers Care Forklift Truck Mechanic Name Role Phone Kati Godinez MD Primary Care Provider [phone] Reason for Visit * Reason Onset Date Comments PT1 12/04/2024 Encounter Details Date Type Department Care Team ([facility] Contact Info) Description 12/04/2024 Telephone [facility]S [address] [place] [address] Kati Godinez MD [address] [place] [address] PT1 Social History Tobacco Use Types Packs/Day Years [...] AM EST documented as of this encounter Miscellaneous Notes * Telephone Encounter - Hayleesherman Allison - 12/04/2024 8:59 AM EDT Patient is requesting a renewal for Pt1 form to: Name of facility: [facility] Specialty: ALL FUTURE APPT's Location: [address] [facility] [address] Date: N/A Time: N/A fax: N/A Phone: N/A wheelchair: N/A Prosecuting Attorney: YES Name of facility: [facility] Specialty: ALL FUTURE APPT's Location: [address] [facility] [address] Date: N/A Time: N/A fax: N/A Phone: N/A wheelchair: N/A Prosecuting Attorney: YES documented in this encounter Plan of Treatment Not on file documented as of this encounter Visit Diagnoses Not on filedocumented in this encounter Care Teams Forklift Truck Mechanic Relationship Specialty Start Date End Date Kati Godinez MD [address] [place] [address] PCP - General Family Medicine 08/02/12 documented as of this encounter
--- OUTSIDE RECORDS SUMMARY | 2024-12-04 10:50 | XMS_ITS | Clinical Summary ---
Author Organization [employer] Address [address] [facility] [address] 7[address] [place] [address] Care Team Providers Care Food Manager Name Role Phone Kati Godinez MD Primary Care Provider [phone] Allergies No known active allergies Medications cyanocobalamin (Vitamin B-12) 1000 MCG tablet Take 1,000 mcg by mouth in the morning. Active Ascorbic Acid (vitamin C) 1000 MG tablet Take 1,000 mg by mouth in the morning. Active diphenhydrAMINE (BENADryl) 25 MG tablet Take by mouth. Active lurasidone (Latuda) 80 MG tablet Take 80 mg by mouth with evening meal. Active simvastatin (Zocor) 10 MG tabletIndicatio ns:Hypertension , unspecified type Take 1 tablet (10 mg) by mouth at bedtime. 30 tablet 09/28/19 24 Active OneTouch Delica Lancets 33G misc Use to test blood sugar 2 times daily 100 each 09/28/19 24 Active Alcohol Swabs 70 % pads Use to test blood sugar 2 times daily 100 each 09/28/19 24 Active empagliflozin (Jardiance) 10 MG Take 1 tablet (10 mg) by mouth Once per day. 30 tablet 11 06/04/20 24 025 Active Blood Glucose Monitoring Suppl (ONE TOUCH ULTRA 2) w/Device kit Use to test blood sugar 2 times daily 1 kit 12/05/19 25 Active levothyroxine (Synthroid) 25 MCG tablet Take 1 tablet (25 mcg) by mouth before breakfast. 30 tablet 12/05/19 25 026 Active lisinopril 5 MG tablet Take 1 tablet (5 mg) by mouth Once per day. 30 tablet 12/05/19 25 026 Active Blood Glucose Monitoring Suppl (ONE TOUCH ULTRA 2) w/Device kit Use to test blood sugar 2 times daily 1 kit 09/28/19 24 025 Discontinued(Re order (will not trigger notification to Pharmacy)) levothyroxine (Synthroid) 25 MCG tablet Take 1 tablet (25 mcg) by mouth before breakfast. 30 tablet 11 10/05/19 24 025 Discontinued(Re order (will not trigger notification to Pharmacy)) Active Problems Problem Noted Date Diagnosed Date Goiter, nodular 09/19/2022 Hypertension 09/19/2022 Schizo-affective schizophrenia 09/19/2022 Hypercholesteremia 09/19/2022 Encounters Date Type Department Care Team Description 12/04/2024 10:00 AM EDT Office Visit [facility] MED & PEDS [address] [place] [address] Kati Godinez MD Type 2 diabetes mellitus without complication, without long-term current use of insulin (CMS/HCC) (Primary Dx); Hypercholesteremia ; Hypertension, unspecified type; Hypothyroidism, unspecified type; Encounter for screening for malignant neoplasm of colon 12/04/2024 Telephone [facility] MED & PEDS [address] [place] [address] Kati Godinez MD PT1 12/04/2024 Travel 12/03/2024 Telephone [facility] MED & PEDS [address] [place] [address] Kati Godinez MD Chart Prep 11/27/2024 Patient Outreach [facility] [address] [place], [place] [phone] Kati Godinez MD Pre-visit Planning (Pre visit planning LVM ) 11/05/2024 9:20 AM EDT Office Visit [facility] [address] [place] [address] Mckinley, Licha, OD Diabetes type 2, no ocular involvement (CMS/HCC) (Primary Dx) 11/05/2024 Travel 11/01/2024 Population Health Risk Score [facility] ([facility] Department [address] [address] Provider, Population Health Generic from Last 3 Months Immunizations Name Administration Dates Next Due Hep B, adult 12/19/2005 Influenza injectable quadriv alent IIV4 with preservative 07/03/2018 Influenza injectable quadriv alent preservative free 09/19/2022,05/24/2017,08/10/2016,2014 Influenza, IIV3, injectable 05/08/2014, 8 Influenza, Split (incl. jose fied surface antigen) 05/07/2012 TD (adult), 2 Lf tetanus tox oid, preservative free, adsorbed 03/09/2006 Tdap 05/24/2017 Social History Tobacco Use Types Packs/Day Years Used Date Smoking Tobacco: Never Smokeless Tobacco: Never Tobacco Cessation:Counseling Given: Not Answered Alcohol Use Standard Drinks/Week Comments Never 0 (1 standard drink = 0.6 oz pur e alcohol) Housing Stability Answer Date Recorded What is your housing situation today? I have everjean shaffer 06/26/[address] you [...] not to disclose 2022 9:48 AM EST Last Filed Vital Signs Vital Sign Reading [...] Mass Index 33.66 12/04/2024 9:14 AM EDT Plan of Treatment Health Maintenance Due Date Last Done Comments CT Colonography 1969 Colonoscopy 1969 Colorectal Cancer Screening 1969 Depression Screening 1969 FIT DNA/Cologuard 1969 FIT 1969 FOBT 1969 HIV Screening 1969 Sigmoidoscopy 1969 Diabetes: Foot Exam 1979 Eye Exam 1979 Alcohol/Substance Use Screening 1981 Diabetes: Urine Protein Screening 1988 Pneumococcal Vaccine: 50+ Years (1 of 2 - PCV) 1988 Hepatitis B Vaccines (2 of 3 - 19+ 3-dose series) 01/16/2006 12/19/2005 Zoster Vaccines (1 of 2) 2019 SDOH Screening 09/28/2024 09/28/2023 Influenza Vaccine (#1) 2025 , 07/03/2018, 05/24/2017, Additional history exists Postponed from 04/21/2024 (Patient Refused) COVID-19 Vaccine ( - season) 2025 Postponed from 04/21/2024 (Patient Refused) Lipid Panel 06/04/2025 06/04/2024, 02/0 03/2024, 09/19/2022 Diabetes: Hemoglobin A1C 06/05/2025 025, 06/04/2024, 09/28/2023 Tobacco Screening 11/18/2025 11/18/2024 DTaP/Tdap/Td Vaccines (2 - Td or Tdap) 05/24/2027 05/24/2017, 03/09/2006 RSV Patients and Patients Aged 60 years or older (1 - 1-dose 75+ series) 2044 Hepatitis C Screening Completed 09/28/2023 HIB Vaccines Aged Out No longer eligi ble based on patient's age to complete this topic HPV Vaccines Aged Out No longer eligi ble based on patient's age to complete this topic Hepatitis A Vaccines Aged Out No long er eligible based on patient's age to complete this topic IPV Vaccines Aged Out No longer eligi ble based on patient's age to complete this topic Meningococcal Vaccine Aged Out No hermilo octaviano eligible based on patient's age to complete this topic RSV under 20 months Aged Out No longe r eligible based on patient's age to complete this topic Rotavirus Vaccines Aged Out No longer eligible based on patient's age to complete this topic Procedures Procedure Name Priority Date/Time Associated Diagnosis Comments POCT GLUCOSE Routine 12/04/2024 9:15 AM EDT Type 2 diabetes mellitus without complication, without long-term current use of insulin (CMS/HCC) POCT GLYCATED HEMOGLOBIN, TOTAL Routine 12/04/2024 9:15 AM EDT Type 2 diabetes mellitus without complication, without long-term current use of insulin (CMS/HCC) FUNDUS PHOTOS - OU - BOTH EYES Routine 11/05/2024 9:20 AM EDT Diabetes type 2, no ocular involvement (CMS/HCC) LIPID PANEL, STANDARD Routine 06/04/2024 9:40 AM EDT Type 2 diabetes mellitus without complication, without long-term current use of insulin (CMS/HCC) Hypercholesteremia HEPATITIS C AB W/REFL TO HCV RNA, QN, PCR Routine 09/28/2023 9:39 AM EST PE (physical exam), annual from Last 3 Months or Most Recently Relevant to Health Maintenance Results * POCT A1C (12/04/2024 9:15 AM EDT) Hemoglobin A1C 5.3 4.0 - 6.0 % QC Media Lot # Comment:[id number] Lot# Expiration Date Comment:07/09/2026 Blood 12/04/2024 9:15 AM EDT Kati Godinez MD POINT OF CARE TEST ENTER/EDIT OR DERABLES Final Result * POCT glucose manually resulted (12/04/2024 9:15 AM EDT) Glucose Blood, POC 105 60 - 200 mg/dL QC Media Lot # Comment:[id number] Lot# Expiration Date Comment:02/20/2025 Blood Capillary blood specimen / Unknown 12/04/2024 9:15 AM EDT Kati Godinez MD POINT OF CARE TEST ENTER/EDIT OR DERABLES Final Result * Fundus Photos - OU - Both Eyes (11/05/2024 9:20 AM EDT) Narrative Licha Sen, OD - 11/18/2024 4:44 PM EDT Right Eye Progression has no prior data. Disc findings include normal observations (0.2/0.2). Macula findings include normal observations. Vessel findings include normal observations. Periphery findings include normal observations. Left Eye Progression has no prior data. Disc findings include normal observations (0.2/0.2). Macula findings include normal observations. Vessel findings include normal observations. Periphery findings include normal observations. Notes Assessment and Plan: No diabetic retinopathy (DR) to extent seen. Will monitor in 1 year with a dilated eye exam. Licha Sen OD OPHTH PHOTOGRAPHY Final Resul t * (ABNORMAL) Lipid Panel, Standard (06/04/2024 9:40 AM EDT) Triglycerides 69 <150 mg/dL [facility] Comment:Desirable Triglyceri de: less than 150 mg/dLBorderline High Triglyceride 150-199 mg/dLHigh Triglyceride: 200-499 mg/dLVery High Triglyceride: greater than or equal to 5OO mg/dL Cholesterol 162 <200 mg/dL [facility] Comment:Desirable Cholestero l: less than 200 mg/dLBorderline High Cholesterol: 200-239 mg/dLHigh Cholesterol: greater than 239 mg/dL LDL Cholesterol Calculated 108(H) <100 mg/dL [facility] Comment:Desirable LDL: less than 100 mg/dLNear Optimal/Above Optimal LDL: 110- 129 mg/dLBorderline High LDL: 130-159 mg/dLHigh LDL: 160-189 mg/dLVery High LDL: greater than or equal to 190 mg/dL HDL Cholesterol 41 >40 mg/dL [facility] Comment:Desirable HDL: great er than 40 mg/dL Note: This HDL assay may give artificially low results in patients with liver disease. Blood Venous blood specimen / Unknown 06/04/2024 9:40 AM EDT 06/04/2024 2:35 PM EDT Kati Godinez MD LAB BLOOD ORDERABLES Final Resul t Performing Organization Address [facility] Co de Phone Number [facility] [address] [place] [phone] * Hepatitis C Antibody with Reflex to HCV, RNA, Quantitative, Real-Time PCR (09/28/2023 9:39 AM EST) Hepatitis C Antibody Nonreactive Nonreactive [facility] Comment:Antibodies to HCV no t detected; does not exclude early acuteHCV infection. Blood Venous blood specimen / Unknown 09/28/2023 9:39 AM EST 09/28/2023 2:28 PM EST Kati Godinez MD LAB BLOOD ORDERABLES Final Resul t Performing Organization Address [facility] Co de Phone Number [facility] [address] [place] [phone] from Last 3 Months or Most Recently Relevant to Health Maintenance [place] [phone] [facility] Care Teams Food Manager Relationship Specialty Start Date End Date Kati Godinez MD [address] [place] [phone] PCP - General Family Medicine 08/02/12
--- OUTSIDE RECORDS SUMMARY | 2024-12-04 10:50 | XMS_ITS | Encounter Summary ---
Author Organization [employer] Address [address] [facility] 7t [place] [address] Care Team Providers Care Director Music Name Role Phone Kati Godinez MD Primary Care Provider [phone] Reason for Visit * Reason Onset Date Comments Med Change Request 09/28/2023 Encounter Details Date Type Department Care Team ([facility] Contact Info) Description 09/28/2023 Telephone [facility] MED & PEDS [address] [place] [address] Kati Godinez MD [address] [place] [address] Med Change Request Social History Tobacco Use Types Packs/Day Years [...] encounter Miscellaneous Notes * Telephone Encounter - Melissa Johnson RN - 10/05/2023 10:22 AM EST TC to pt guardian Sidney, she is aware of low TSH and levothyroxine being sent to [facility]. She will be picking up for pt. Advised to take 1/2 hour before breakfast daily. Sidney verbalized understanding and agrees to plan. * Telephone Encounter - Melissa Johnson RN - 10/05/2023 10:22 AM EST ----- Message from Kati Godinez MD sent at 10/05/2023 8:57 AM EST ----- Low TSH Started on levothyroxine 25mcg * Telephone Encounter - Brenda Redd - 09/28/2023 11:16 AM EST Tc from pharmacy calling to advise provider insurance does not cover Blood Glucose Monitoring Suppl(ONE TOUCH ULTRA 2) w/Device kit . Insurance only covers the freestyle lite. documented in this encounter Plan of Treatment Not on file documented as of this encounter Visit Diagnoses Not on filedocumented in this encounter Care Teams Director Music Relationship Specialty Start Date End Date Kati Godinez MD [address] [place] [phone] PCP - General Family Medicine 08/02/12 documented as of this encounter
--- OUTSIDE RECORDS SUMMARY | 2024-12-04 10:50 | XMS_ITS | Encounter Summary ---
Author Organization [employer] Address [address] [facility] [address] [place] [address] Care Team Providers Care Dental Intern Name Role Phone Kati Godinez MD Primary Care Provider [phone] Reason for Visit * Reason Onset Date Comments Appointment Request 09/08/2023 Encounter Details Date Type Department Care Team ([facility] st Contact Info) Description 09/08/2023 Telephone [facility] [address] [place] [address] Kati Godinez MD [address] [facility] [place] [id number] Appointment Request Social History Tobacco Use Types Packs/Day [...] before you got money to buy more: Not on file 06/26/2023 Within the past 12 months,th e food you bought just didn't last and you didn't have enough money to get more: Never True 01/2023 Transportation Answer Date Recorded In the past 12 months, has l ack of transportation kept you from medical appts, meetings, work or from getting things needed for daily living? No 06/26/2023 Utilities Answer Date Recorded In the past [...] encounter Miscellaneous Notes * Telephone Encounter - Penny Ramirez - 09/08/2023 10:15 AM EST Tc from pt mom requesting appt with PCP no concerns with health at this time. Kyrgyz Speaker documented in this encounter Plan of Treatment Not on file documented as of this encounter Visit Diagnoses Not on filedocumented in this encounter Care Teams Dental Intern Relationship Specialty Start Date End Date Kati Godinez MD [address] [place] [id number] PCP - General Family Medicine 08/02/12 documented as of this encounter
--- OUTSIDE RECORDS SUMMARY | 2024-12-04 10:50 | XMS_ITS | Encounter Summary ---
Author Organization [employer] Address [address] [facility] [address] [place] [address] Care Team Providers Care Auto Vinyl Top Installer Name Role Phone Kati Godinez MD Primary Care Provider [phone] Reason for Visit * Reason Onset Date Comments Chart Prep 12/03/2024 Encounter Details Date Type Department Care Team ([facility] Contact Info) Description 12/03/2024 Telephone [facility] [address] [place] [address] Kati Godinez MD [address] [place] [address] Chart Prep Social History Tobacco Use Types Packs/Day Years [...] encounter Miscellaneous Notes * Telephone Encounter - Yessica Bocanegra [place] - 12/03/2024 9:34 AM EDT Chart Prep Labs: done Images: done Referrals: complete Vaccines due: yes Screenings: eye exam, foot exam, and STI screening Overdue care gaps: A1c, Glucose, SDOH, and Disability screen documented in this encounter Plan of Treatment Not on file documented as of this encounter Visit Diagnoses Not on filedocumented in this encounter Care Teams Auto Vinyl Top Installer Relationship Specialty Start Date End Date Kati Godinez MD [address] [place] [id number] PCP - General Family Medicine 08/02/12 documented as of this encounter
[2024-12-04 15:18] LABS: Albumin Level 4.6 g/dL (3.5-5.0); Anion Gap 12 (12-20); Aspartate Amino Transferase 27 U/L (5-37); Bilirubin Direct 0.3 mg/dL (0.0-0.5); Bilirubin Total 0.7 mg/dL (0.0-1.0); Blood Urea Nitrogen 16 mg/dL (9-16); Calcium 9.8 mg/dL (8.4-10.2); Carbon Dioxide 27 mmol/L (22-29); Chloride 106 mmol/L (96-108); Cholesterol 203 mg/dL (<200); Estimated Glomerular Filt Rate > 60; Glucose Random 96 mg/dL (60-115); HDL Cholesterol 41 mg/dL (>40); LDL Cholesterol Calculated 137 mg/dL (<100); Potassium 3.9 mmol/L (3.3-5.1); Sodium 141 mmol/L (135-145); Total Protein 7.5 g/dL (6.5-8.0); Triglycerides 126 mg/dL (<150)
[2024-12-04 15:38] LABS: TSH reflex Free T4 0.53 uIU/mL (0.32-4.0)
[2024-12-04 16:03] LABS: Alanine Aminotransferase 67 U/L (0-40); Alkaline Phosphatase 77 U/L (39-117)
== END 2024-12-04 09:42 | disposition home or self-care (01) ==
LOC: HO.CHCLDS 09:41
PROVIDERS: Visit Provider Student in an Organized Health Care Education/Training Program
DX: E11.9 Type 2 diabetes mellitus without complications (principal); I10 Essential (primary) hypertension; E03.9 Hypothyroidism, unspecified; E78.00 Pure hypercholesterolemia, unspecified
CPT/HCPCS: 36415; 80048; 80061; 80076; 84443